=== PATIENT | female | born 1970 | race Caucasian/White ===

== ENCOUNTER 2023-01-04 06:26 | Day surgery (SDC) | payer OTHER ==
[2022-12-20 11:18] VITALS: BMI 43.2
[2023-01-04] MEDS ORDERED: THROMBIN (BOVINE) 5,000 UNIT VIAL TP ONE (07:08)
[2023-01-04] MEDS ORDERED: ceFAZolin SODIUM 1 GM VIAL ONE (07:08)
[2023-01-04] MEDS ORDERED: oxyCODONE HCL 5 MG TABLET PO PRN (07:28)
[2023-01-04] MEDS ORDERED: ONDANSETRON 4 MG/2 ML VIAL IVPUSH PRN (07:28)
[2023-01-04] MEDS ORDERED: LACTATED RINGERS SOLUTION 1,000 ML IV SCH ×2 (07:30→08:00)
[2023-01-04] MEDS ORDERED: ROPIVACAINE HCL 0.5% 30ML VIAL ONE (07:36)
[2023-01-04] MEDS ORDERED: MIDAZOLAM HCL 2 MG/2 ML SINGLE DOSE VIAL ONE (07:36)
[2023-01-04] MEDS ORDERED: BUPIVACAINE HCL/PF 0.5% (5 MG/ML) 30 ML VIAL IJ ONE (07:36)
[2023-01-04] MEDS ORDERED: PROPOFOL 60 ML ONE (07:39)
[2023-01-04] MEDS ORDERED: CEFAZOLIN 2 GM in DEXTROSE 5%-WATER - 50 ML IVPB ONE (07:55)
[2023-01-04] MEDS ORDERED: TRANEXAMIC ACID 1000 MG/10 ML VIAL IVPUSH ONE (07:55)
[2023-01-04] MEDS ORDERED: CELECOXIB 200 MG CAPSULE PO ONE (07:55)
[2023-01-04] MEDS ORDERED: BUPIVICAINE 0.25%/MORPH PF/KETOROLAC - 51ML DISP.SYRINGE IA ONE ×3 (07:55→09:36)
[2023-01-04] MEDS ORDERED: PROPOFOL 40 ML ONE (09:07)
[2023-01-04] MEDS: PANTOPRAZOLE 40 MG TABLET PO SCH ×2 (11:29→21:30)
[2023-01-04] MEDS: MULTIVITAMINS (DAILY MVI) TABLET (FP) PO SCH (11:29)
[2023-01-04] MEDS: traMADol HCL 50 MG TABLET PO PRN ×2 (14:59→20:58)
[2023-01-04] MEDS: CEFAZOLIN SODIUM 2 GM in DEXTROSE 5%-WATER 100 ML IVPB SCH (15:45)
[2023-01-04] MEDS: ATORVASTATIN CA 10 MG TABLET (FP) PO SCH (20:57)
[2023-01-04] MEDS: SENNOSIDES/DOCUSATE COMBO (SENNA PLUS) TABLET (UD) PO SCH (20:58)
[2023-01-04] MEDS ORDERED: ACETAMINOPHEN INJECTION 100 ML IVPB ONE (21:51)
[2023-01-04] MEDS: ACETAMINOPHEN 1000 MG/100 ML BAG IVPB PRN (22:15)
[2023-01-05] MEDS: ATORVASTATIN CA 10 MG TABLET (FP) PO SCH
[2023-01-05] MEDS: CEFAZOLIN SODIUM 2 GM in DEXTROSE 5%-WATER 100 ML IVPB SCH (00:06)
[2023-01-05] MEDS: traMADol HCL 50 MG TABLET PO PRN ×3 (04:30→11:50)
[2023-01-05] MEDS: ACETAMINOPHEN 1000 MG/100 ML BAG IVPB PRN (06:31)
[2023-01-05 06:40] VITALS: BP 133/74; PULSE 72; RESP 16; TEMP 98
[2023-01-05] MEDS ORDERED: ASPIRIN 325 MG TABLET PO SCH (08:00)
[2023-01-05] MEDS: PANTOPRAZOLE 40 MG TABLET PO SCH (11:18)
[2023-01-05] MEDS: SENNOSIDES/DOCUSATE COMBO (SENNA PLUS) TABLET (UD) PO SCH (11:18)
[2023-01-05] MEDS: MULTIVITAMINS (DAILY MVI) TABLET (FP) PO SCH (11:18)
== END 2023-01-05 12:43 | disposition home health service (06) ==
LOC: FASUSAT 06:26 → FM/S 11:06 → FASUSAT 01-05 12:43
PROVIDERS: ATTEND Orthopaedic Surgery
PROC: 8E0Y0CZ Robotic Assisted Procedure of Lower Extremity, Open Approach (ICD-10-PCS; 2023-01-04)
PROC: 0SRC0L9 Replacement of Right Knee Joint with Medial Unicondylar Synthetic Substitute, Cemented, Open Approach (ICD-10-PCS; principal; 2023-01-04 08:30)
DX: M17.11 Unilateral primary osteoarthritis, right knee (principal)
CPT/HCPCS: 20985; 27446; C1776; S2900; 73560-TC-RT-FY; 94760; 97116-GP; 97162-GP; C1889